=== PATIENT | female | born 1995 | race Caucasian/White ===

== ENCOUNTER 2022-05-30 06:53 | Outpatient (CLI) | payer OTHER ==
[~2022-05-30] VITALS: Ht 170.2 cm; Wt 96.8 kg
[2022-05-30] MEDS ORDERED: PRENATAL TABLET PO (07:31)
[2022-05-30] MEDS ORDERED: CLARITIN 1010 MG/TAB PO (07:32)
--- NOTE | 2022-05-30 07:41 | NUR ---
Pt ambulatory to unit at 0700 with sister and . Pt changes into gown, EFM explained and placed, VS taken. Pt reports contractions since 0200, occuring about every 5 minutes. Pt states they vary in strength, "some hurt, some not so much". Pt denies leaking of fluid, reports losing mucuos plug and some bleeding this morning. Picture shown of blood tinged mucous. Pt reports good movement. SVE 1-2/60/-3. Plan of care for labor check explained, pt verbalizes understanding, denies questions at this time.
[2022-05-30 08:14] VITALS: BP 138/84; PULSE 76; TEMP 97.8
--- NOTE | 2022-05-30 09:20 | NUR ---
at 0814 unchanged. Pt taken off monitors and changed into own clothes. Discharge information given on early labor, instrcutions discussed to return if leaking of fluid, vaginal bleeding, decrease in baby's movements, or regular strong contractions every 3-5 minutes. Pt verbalizes understanding. Pt leaves ambulatory at 0820.
== END 2022-05-30 08:20 | disposition home or self-care (01) ==
LOC: LDRO 06:53
DX: O62.9 Abnormality of forces of labor, unspecified (principal); Z3A.39 39 weeks gestation of pregnancy

== ENCOUNTER 2022-05-30 13:45 | Inpatient (IN) | payer OTHER ==
[2022-05-30] VITALS (29 sets, daily range): BP systolic 104–1277; BP diastolic 64–87; PULSE 79–117; TEMP 97.8–98.8
[~2022-05-30] VITALS: Ht 170.2 cm; Wt 96.8 kg
[~2022-05-30 13:45] MED LIST: CLARITIN 1010 MG/TAB PO; PRENATAL TABLET PO
--- NOTE | 2022-05-30 14:00 | NUR ---
Pt arrives ambulatory to unit for labor check. Pt changes into gown, EFM explained and placed. VS taken. SVE /-2. Pt denies leaking of fluid and vaginal bleeding, reports good movement. Reports contractions all in her back. Assessments done. Plan of care discussed with pt, pt verbalizes understanding.
--- NOTE | 2022-05-30 15:02 | NUR ---
1502Care of patient assumed by this RN. Bedside report recevied from Griselda Carpenter RN. This RN at bedside and reviews plan of care with patient and family. 1510IV placed and routine labs obtained. LR bolus infusing. Consent forms explained and signed. Assessment completed. 1532Patient up to bathroom to void. 1540Patient to edge of bed for epidural placement. Surya Rodríguez CRNA at bedside. FHR difficult to trace due to maternal position and habitus. RN remains at bedside adj. EFM. 1547Epidural placed and single shot by Surya Rodríguez CRNA. See anesthesia record. 1553Pt wedge left. EFM adjusted and tracing well. Plan of care and safety precautions reviewed. Pt verbalizes understanding. Resting with call light within reach.
--- NOTE | 2022-05-30 15:02 | NUR ---
Repeat SVE -/-2. Dr. Bocanegra notified. Pt to be admitted at this time.
[2022-05-30 15:21] LABS: BASO % 0.2 % (0.0-2.0); EOS % 0.1 % (0.0-4.0); GRAN # 14.1 K/mm3 (1.4-6.5); GRAN % 87.1 % (42.2-75.2); HEMOGLOBIN 12.3 g/dl (12.5-16.0); LYMPH # 1.1 K/mm3 (1.2-3.4); LYMPH % 6.9 % (20.0-51.0); MEAN CELL VOLUME 91 fl (80.0-100.0); MEAN CORPUSCULAR HEMOGLOBIN 31 pg (27-31); MEAN CORPUSCULAR HGB CONC 34 g/dl (33.0-37.0); MEAN PLATELET VOLUME 10.5 fl (7.4-10.4); MONO # 0.8 K/mm3 (0.1-0.6); MONO % 5.2 % (1.7-9.3); PLATELET COUNT 249 K/mm3 (130-400); RED BLOOD COUNT 3.94 M/mm3 (4.10-5.30); REDCELL DISTRIBUTION WIDTH-CV 13.1 % (11.5-14.5)
[2022-05-30 15:22] LABS: HEMATOCRIT 35.8 % (37.0-47.0)
--- NOTE | 2022-05-30 20:42 | NUR ---
SPONTANEOUS VAGINAL DELIVERY OF LIVE BABY BOY AT 1942. LOOSE NUCHAL CORD REDUCED BY DR. WARREN. PLACED ON MOTHER'S CHEST, SKIN TO SKIN AND DELAYED CORD CLAMPING OF 2 MINUTES. FOB CUT THE CORD. VIGOROUS CRY FROM TIME OF DELIVERY FROM . NURSERY NURSE, JACKI BRYANT, AT BEDSIDE FOR DELIVERY AND CARE OF . PLACENTA SPONTANEOUSLY DELIVERED AT 194. 2ND DEGREE REPAIRED BY DR. WARREN. RECOVERY STARTED AT 1999.
--- NOTE | 2022-05-30 21:36 | NUR ---
PROLONGED DECEL 1843 TO 1847. RN AT BEDSIDE, CALLED DR. WARREN TO REPORT FHT. MD ON UNIT IN SURGERY. RN PLACED NON-REBREATHER MASK AND 10L OF OXYGEN ON PT AND CHANGED PT POSITION TO LOW FOWLERS. RN CALLED CHARGE NURSE IN ROOM TO REPORT WELL. NO NEW ORDERS RECEIVED FROM MD AT THIS TIME SINCE FHT RECOVERED TO BASELINE.
--- NOTE | 2022-05-30 22:00 | NUR ---
RECOVERY COMPLETE AT 2200. PT STABLE HAS NO COMPLAINTS OF PAIN AT THIS TIME, ALL VSS AND LOCHIA WNL. NEW PAD, NEW PANTIES AND NEW GOWN APPLIED. PT ABLE TO MOVE AND FEEL LEGS AND TEMPERATURE OF FLOOR. TRANSFERED PT VIA [facility] TO ROOM. PT ABLE TO VOID WITH ISSUE. PT THEN MOVED TO BED WITH ASSISTANCE. PT DID EXPERIENCE SLIGHT DIZZINESS, JUICE AND COOL RAG PROVIDED AND CORRECTED DIZZINESS. VSS. IN ROOM ALONG WITH FOR ROOMING IN. CALL LIGHT LEFT WITHIN REACH AND PT/ ORIENTED TO ROOM. ICE WATER PROVIDED.
[2022-05-31 03:02] VITALS: BP 117/68; PULSE 88; TEMP 98
[2022-05-31 07:00] VITALS: BP 111/71; PULSE 70; TEMP 97.7
[2022-05-31 11:00] VITALS: BP 128/72; PULSE 70
--- NOTE | 2022-05-31 11:00 | NUR ---
Initial visit; Parents thanked [employer] for offering Congratulations and God's blessings for the of their son. [employer] thanked family for choosing [facility].
[2022-05-31 15:50] VITALS: BP 116/78; PULSE 89; TEMP 98
[2022-05-31 20:09] VITALS: BP 115/75; PULSE 94; TEMP 97.8
[2022-06-01 08:15] VITALS: BP 135/73; PULSE 106
== END 2022-06-01 16:35 | disposition home or self-care (01) | DRG 807 ==
LOC: LDRO 13:45 → LDR 15:03 → OB 22:20
PROVIDERS: ADMIT Obstetrics & Gynecology
PROC: 10E0XZZ Delivery of Products of Conception, External Approach (ICD-10-PCS; principal; 2022-05-30)
PROC: 0KQM0ZZ Repair Perineum Muscle, Open Approach (ICD-10-PCS; 2022-05-30)
DX: O34.13 Maternal care for benign tumor of corpus uteri, third trimester (principal); Z37.0 Single live birth; D25.9 Leiomyoma of uterus, unspecified; Z3A.39 39 weeks gestation of pregnancy; O69.81X0 Labor and delivery complicated by cord around neck, without compression, not applicable or unspecified; O70.1 Second degree perineal laceration during delivery; O77.0 Labor and delivery complicated by meconium in amniotic fluid; O71.89 Other specified obstetric trauma; O76 Abnormality in fetal heart rate and rhythm complicating labor and delivery; O43.893 Other placental disorders, third trimester
CPT/HCPCS: J2795; J7120